=== PATIENT | female | born 1975 | race Caucasian/White ===

== ENCOUNTER 2020-07-23 10:05 | Emergency (ER) | payer OTHER ==
--- NOTE | 2020-07-23 11:02 | XRAY Report ---
PROCEDURE: Ankle 3 View LT INDICATIONS: medial pain with movement like gout TECHNIQUE: 3 views of the ankle were acquired. COMPARISON: None available FINDINGS: Bones: No fractures or dislocations. Ankle mortise is normally aligned. No suspicious bony lesions . A plantar calcaneal spur is incidentally noted. The talar dome demonstrates an unremarkable henry earance. Soft tissues: Soft tissue swelling is seen, particularly medially. IMPRESSION: Soft tissue swelling is seen, particularly medially. If it would be helpful for clinical management decision making, please consider a dedicated ankle MRI for further evaluation (assuming that there is no contraindication). Reviewed by: Yvon Mann MD on 07/23/2020 10:01 AM [facility] Approved by: Yvon Mann MD on 07/23/2020 10:01 AM L[facility]US Station ID: [id number]
[2020-07-23] MEDS: DEXAMETHASONE 10 MG/ML VIAL PO STA (11:04)
[2020-07-23] MEDS: CHERRY SYRUP 10 ML UDC PO ONE (11:04)
[2020-07-23] MEDS: KETOROLAC 60 MG/2 ML VIAL IM STA (11:06)
--- NOTE | 2020-07-23 11:14 | ED Physician Documentation ---
PD HPI LOWER EXT INJURY - Stated complaint Stated Complaint: LT ANKLE PX - Chief complaint Chief Complaint: Ext Problem - History of Present Illness PD HPI LOW EXT INJURY LOCATION: Left, Ankle Type of injury: Other (unknown) Where injury occurred: Home Timing - onset: Yesterday Timing - duration: Days (1) Timing - details: Gradual onset, Still present Improved by: Rest, Immobilization Worsened by: Moving, Palpating Associated symptoms: Swelling. No: Weakness, Numbness Contributing factors: No: Anticoagulated Similar symptoms before: No diagnosis Recently seen: Not recently seen - Additional information Additional information: 44-year-old female reports waking up with pain in her left ankle on the medial aspect that is more severe today and she is unable to bear weight. She is inability to even move her ankle around without severe pain. She does not remember injuring the ankle. She states that she awoke with this pain yesterday morning she felt that when she went to get out of bed she was able to limp around a bit yesterday earlier this morning her pain is melted she is unable to even get the bed sheets to be comfortable over her feet and she is unable to bear weight this morning. Review of Systems Constitutional: denies: Fever, Chills Eyes: denies: Decreased vision Ears: denies: Ear pain Nose: denies: Congestion Throat: denies: Sore throat Cardiac: denies: Chest pain / pressure Respiratory: denies: Dyspnea, Cough GI: denies: Abdominal Pain, Nausea, Vomiting : denies: Dysuria, Frequency Skin: denies: Rash Musculoskeletal: reports: Joint pain, Joint swelling, Pain with weight bearing. 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 : None HEENT: None Psych: Depression Musculoskeletal: None Derm: None - Past Surgical History Past Surgical History: Yes Ortho: Shoulder arthroplasty - Present Medications Home Medications: Ambulatory Orders Medication Instructions Recorded Confirmed Amlodipine Besylate 10 mg PO DAILY PM 07/23/20 07/23/20 Escitalopram Oxalate 10 mg PO DAILY 07/23/20 07/23/20 Hydrocodone/Acetaminophen 1 - 2 each PO Q6H PRN #14 tablet 07/23/20 [Hydrocodone-Acetamin 5-325 mg] Indomethacin 25 mg PO Q6HR PRN #30 capsule 07/23/20 Levothyroxine [Synthroid] 125 mcg PO QDAC 07/23/20 07/23/20 SUMAtriptan succinate [Sumatriptan 50 mg PO DAILY PRN 07/23/20 07/23/20 Succinate] - Allergies Allergies/Adverse Reactions: Allergies Allergy/AdvReac Type Severity Reaction Status Date / Time No Known Drug Allergies Allergy Verified 07/23/20 10:15 - Social History Does the pt smoke?: No Smoking Status: Former smoker Does the pt drink ETOH?: Yes Does the pt have substance abuse?: No - Immunizations Immunizations are current?: No PD ED PE NORMAL - Vitals Vital signs reviewed: Yes (hypertensive ) - General General: Alert and oriented X 3, No acute distress, Well developed/nourished - HEENT HEENT: Atraumatic, PERRL, EOMI - Respiratory Respiratory: No respiratory distress - Derm Derm: Normal color, Warm and dry, No rash - Extremities Extremities: No deformity, No edema, Other (There is exquisit tenderness to the medial aspect of the left ankle there is only mild swelling. Slight movements of the ankle cause excessive pain. The distal n/v is intact. ) - Neuro Neuro: Alert and oriented X 3, photograph retoucher 2-12 intact, No motor deficit, No sensory deficit, Normal speech Eye Opening: Spontaneous Motor: Obeys Commands Verbal: Oriented GCS Score: 15 - Psych Psych: Normal mood, Normal affect Results - Vitals Vitals: Vital Signs - 24 hr 07/23/20 07/23/20 10:12 10:49 Temperature 37.1 C 36.9 C Heart Rate 77 73 Respiratory 16 18 Rate Blood Pressure 138/94 H 144/83 H O2 Saturation 100 99 Oxygen O2 Source Room air - Rads (name of study) ankle Radiology: Prelim report reviewed (Impression: Soft tissue swelling is seen, particularly medially.), EMP read indepedently, See rad report PD MEDICAL DECISION MAKING - ED course Complexity details: considered differential, d/w patient ED course: 44-year-old female with an acutely painful left ankle appears to have gout by history and exam. She has no evidence of fracture on her plain film. She is treated in the emergency department with dexamethasone and Toradol.We will provide the patient indomethacin and hydrocodone and a note for work for 3 days. I explained to the patient reasons to come back to the emergency department main things to be concerned about and she appears to understand. Departure - Departure Disposition: 01 Home, Self Care Clinical Impression: Gout attack Qualifiers: Gout site: ankle Gout etiology: unspecified cause Laterality: left Qualified Code(s): M10.9 - Gout, unspecified Condition: Stable Instructions: Gout Attack Tx, ED Diet Gout Follow-Up: [facility] [Provider Group] Prescriptions: Indomethacin 25 mg PO Q6HR PRN #30 capsule PRN Reason: Pain Hydrocodone/Acetaminophen [Hydrocodone-Acetamin 5-325 mg] 1 - 2 each PO Q6H PRN #14 tablet PRN Reason: Pain Forms: Activity restrictions
[2020-07-23 11:43] VITALS: BP 157/90
== END 2020-07-23 11:59 | disposition home or self-care (01) ==
LOC: ED 10:05
DX: M10.072 Idiopathic gout, left ankle and foot (principal); I10 Essential (primary) hypertension; Z87.891 Personal history of nicotine dependence
CPT/HCPCS: 73610; 96372; 99283; 99284; A9270

== ENCOUNTER 2020-08-27 17:34 | Outpatient (CLI) | payer OTHER | END 2020-08-27 17:35 | disposition home or self-care (01) | LOC: COV 17:34 | PROVIDERS: ATTEND Family Medicine | DX: Z20.828 Contact with and (suspected) exposure to other viral communicable diseases (principal) ==

== ENCOUNTER 2020-09-15 16:34 | Emergency (ER) | payer OTHER ==
[2020-09-15 16:42] VITALS: BP 130/87
--- NOTE | 2020-09-15 16:46 | ED Physician Documentation ---
PD HPI OPHTHO - Stated complaint Stated Complaint: BILAT EYE IRRITATION - Chief complaint Chief Complaint: Heent - History obtained from History obtained from: Patient - Additional information Additional information: Since yesterday she had left eye irritation and a feeling of grittiness with redness and today it is moved to the right eye. No visual deficit or purulent drainage. She does not wear contacts. 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 : None HEENT: None Psych: Depression Musculoskeletal: None Derm: None - Past Surgical History Past Surgical History: Yes Ortho: Shoulder arthroplasty - Present Medications Home Medications: Ambulatory Orders Medication Instructions Recorded Confirmed Amlodipine Besylate 10 mg PO DAILY PM 07/23/20 09/15/20 Hydrocodone/Acetaminophen 1 - 2 each PO Q6H PRN #14 tablet 07/23/20 09/15/20 [Hydrocodone-Acetamin 5-325 mg] Levothyroxine [Synthroid] 125 mcg PO QDAC 07/23/20 09/15/20 SUMAtriptan succinate [Sumatriptan 50 mg PO DAILY PRN 07/23/20 09/15/20 Succinate] Escitalopram [Lexapro] 1 tab PO DAILY 09/15/20 09/15/20 - Allergies Allergies/Adverse Reactions: Allergies Allergy/AdvReac Type Severity Reaction Status Date / Time No Known Drug Allergies Allergy Verified 09/15/20 16:39 - Social History Does the pt smoke?: No Smoking Status: Former smoker Does the pt drink ETOH?: Yes Does the pt have substance abuse?: No - Immunizations Immunizations are current?: No PD ED PE NORMAL - Vitals Vital signs reviewed: Yes - General General: Alert and oriented X 3, No acute distress - HEENT HEENT: PERRL, EOMI, Ears normal, Other (Beet red viral appearing conjunctivitis on both sides left slightly worse than right. No eyelid swelling or edema. No drainage.) - Neck Neck: Supple, no meningeal sign, No bony TTP - Neuro Neuro: Alert and oriented X 3, Normal speech Results - Vitals Vitals: Vital Signs - 24 hr 09/15/20 16:41 Temperature 36.5 C Heart Rate 80 Respiratory 16 Rate Blood Pressure 130/87 H O2 Saturation 99 Oxygen O2 Source Room air Departure - Departure Disposition: 01 Home, Self Care Clinical Impression: Viral conjunctivitis of both eyes Condition: Good Record reviewed to determine appropriate education?: Yes Instructions: ED Conjunctivitis Viral Ch Comments: As discussed the conjunctivitis you have, AKA pinkeye is viral in appearance. You can use moisturizing eyedrops available [id number]. Return if worsening or if new symptoms develop. This should go away in a few days.
== END 2020-09-15 16:51 | disposition home or self-care (01) ==
LOC: ED 16:34
DX: B30.8 Other viral conjunctivitis (principal); I10 Essential (primary) hypertension; Z87.891 Personal history of nicotine dependence
CPT/HCPCS: 99281; 99282

== ENCOUNTER 2022-03-12 13:31 | Outpatient (CLI) | payer OTHER ==
[2022-03-12 14:41] VITALS: BP 130/80
--- NOTE | 2022-03-12 14:41 | SLEEP CARE CONSULTATION ---
Information from patient questionnaire entered by Cristopher Antonio MA. I have reviewed and concur with the information entered by Cristopher Antonio MA. This document represents the service I personally performed and the decisions made by , Edith Escobar ARNP. History of Present Illness Service Date and Time: 03/12/2022 1331 Reason for Visit: New patient (ONSET 09/27/2001) Chief Complaint: reports: Insomnia, Unrefreshed sleep, Fatigue, Frequent awakenings at night Date of Onset: SINCE CAN REMEMBER Usual bedtime: 9-11 PM Time it takes to fall asleep: 30 MINUTES TO HOURS Snores at night: Yes Observed to quit breathing while asleep: No Sleeps alone due to snoring: No Number of times waking at night: 1-3 TIMES Reasons for waking at night: reports: Bathroom, Other. denies: Choking, Snoring, Gasping for air Toss, Turn, or Twitch while sleeping: Yes Recalls having dreams: Yes Usually gets out of bed at: 0730 Feels refreshed in the morning: No Morning headache: No Sleepy or fatigued during the day: Yes Ever fallen asleep while driving: Yes (drowsy driving, no accidents) Takes day naps: Yes (daily if not working; 2-3 hours long) Dreams during day naps: Yes Prior sleep studies: No Additional HPI information: I had the pleasure of seeing PIERO BRAR today regarding the possibility of her having a sleep disorder. Her current complaints are insomnia, fatigue, frequent night awakenings and unrefreshed sleep. She states she wakes up at least a couple times a night. She never feels rested. Her has told her she snores. She states she can take 30 minutes to hours to go to sleep, usually due to racing thoughts. Once she gets to sleep she will wake up several times, for bathroom and unknown reasons. She has a history of migraines but denies morning headaches regularly. She has had trouble with drowsy driving but has not had any accidents where she fell asleep at the wheel. - Parasomnia Symptoms Ever been unable to move upon waking from sleep: No Walks in sleep: No Talks in sleep: No Ever acted out dreams in sleep: Yes (woke up hitting out while dreaming of defending herself) Ever felt weak in the knees when startled or emotional: No Bothered by creepy, crawly, restless sensations in legs: No Problems with memory or concentration: Yes (both; concentration is worse) Subjective Initial [place] Sleepiness Scale score: 13 (03/12/2021) Past Medical History Past Medical History: reports: Hypertension, Claustrophobia, Hypothyroidism (Thyroidectomy due to goiter, signs of Hashimotos), Anxiety, Depression, Other (Migraines) Social History 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 Patient is and lives in [place]. Have you smoked in the past 12 months: No Cigarettes per day (20/pack): 10 Years of smokin Quit date: 01/2010 Smoking Pack Years: 7.5 Alcohol use: Yes Alcohol amount and frequency: 1-2 DRINKS, rarely - 1-2 a month Caffeine use: Yes Caffeine amount and frequency: 1 X DAILY, few times a week Family History Family history of sleep disordered breathing: No Allergies and Home Medications Known drug allergies: No Drug allergies reviewed: Yes (NKDA) Home medication list reviewed: Yes Allergy and home medication list: Allergies No Known Drug Allergies Allergy (Verified 09/15/20 16:39) Medications: Lexapro Wellbutrin Amlodipine Imitrex, prn Trazodone, prn Nelson thyroid Review of Systems Cardiovascular: reports: high blood pressure Gastrointestinal: reports: heartburn Urinary: reports: frequency, urgency, other (at night) Neurological: reports: headaches Psychiatric: reports: anxiety, depression Ear/Nose/Throat: reports: wisdom teeth removed. denies: tonsillectomy Endocrine: reports: sluggishness, other (no thyroid) Physical Exam Vital signs obtained and entered by: Philip ANTONIO CMA [facility] Blood Pressure: 130/80 (PULSE 68, RESP 22) Cuff size: wrist (left) Heart Rate: 71 O2 Saturation: 98 Height: 5 ft 4 in Weight: 171 lb Body Mass Index: 29.3 BMI Classification: Overweight Neck circumference: 15 (INCHES) Mouth and throat: narrow oropharynx Soft palate: normal Hard palate: normal Uvula: normal Uvula visualization: 25% Mallampati Class III Tongue: enlarged in size with teeth tony on lateral edges Tonsils: 1+ Neck: normal w/o lymphadenopathy or thyromegaly Heart: regular rate and rhythm Lungs: clear bilaterally Impression and Plan 1. Suspected Obstructive Sleep Apnea-Hypopnea Syndrome, as suggested by a history of loud and irregular snoring, frequent awakening during the night, unrefreshed sleep, cognitive impairment, and excessive daytime sleepiness. Narrow oropharynx and obesity are common predisposing factors for obstructive sleep apnea-hypopnea syndrome. I recommend proceeding to polysomnography to confirm the diagnosis and to assess severity. If the patient has significant sleep disordered breathing, a manual CPAP titration study will also be performed to find the optimal treatment pressure. I informed the patient of what the sleep studies involve and after some discussion, obtained agreement to proceed. The pathophysiology of obstructive sleep apnea-hypopnea syndrome was discussed with the patient and health risks of cardiovascular and cerebrovascular disease if not treated. 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 Patient agreed to plan. * Schedule polysomnography * Avoid long distance driving or driving when feeling sleepy. * Avoid alcohol, sedative and muscle relaxant around bedtime. * Attempt to lose weight. * Review instructions provided by trained office staff on how to prepare for the sleep study. * Return for follow-up after sleep study completed. Counseling Topics: Weight loss health impact Visit Type: In Office Time Spent with Patient (minutes): 35 Provider Statement: I spent 100% of the Face to Face Visit with the patient with greater than 50% spent counseling the patient and coordination of care.
== END 2022-03-12 13:32 | disposition home or self-care (01) ==
LOC: SC 13:31
PROVIDERS: ATTEND Nurse Practitioner Family
DX: R06.83 Snoring (principal); G47.8 Other sleep disorders; G47.00 Insomnia, unspecified; R53.83 Other fatigue; I10 Essential (primary) hypertension; F32.A Depression, unspecified; Z87.891 Personal history of nicotine dependence; E66.3 Overweight; Z68.29 Body mass index [BMI] 29.0-29.9, adult
CPT/HCPCS: 99203; 99212

== ENCOUNTER 2022-03-25 11:53 | Outpatient (CLI) | payer OTHER | END 2022-03-25 11:54 | disposition home or self-care (01) | LOC: SC 11:53 | PROVIDERS: ATTEND Nurse Practitioner Family | DX: G47.33 Obstructive sleep apnea (adult) (pediatric) (principal); R09.02 Hypoxemia; R00.0 Tachycardia, unspecified | CPT/HCPCS: 95806 ==

== ENCOUNTER 2022-04-15 10:27 | Outpatient (CLI) | payer OTHER ==
[2022-04-15 11:03] VITALS: BP 123/72
--- NOTE | 2022-04-15 11:03 | SLEEP CARE CONSULTATION ---
Information from patient questionnaire entered by Cristopher Connell MA. I have reviewed and concur with the information entered by Cristopher Connell MA. This document represents the service I personally performed and the decisions made by , Edith Escobar ARNP. History of Present Illness Service Date and Time: 04/15/2022 1027 Initial [place] Sleepiness Scale score: 13 (03/12/2021) Current [place] Sleepiness Scale score: 15 (04/15/2022) Additional HPI information: PIERO BRAR returns for follow up and results of the recently performed home sleep study. I explained the pathophysiology behind obstructive sleep apnea. We then spent quite a bit of time discussing different treatment options. For mild obstructive sleep apnea, surgery and oral appliance are alternatives to nasal CPAP therapy but in moderate or severe cases, nasal CPAP is the most effective and reliable treatment. Because apnea is primarily in supine position, then positional management therapy could be effective. Methods discussed such as positioning with pillows to prevent supine sleep. I reviewed the impact of weight changes on sleep apnea and strongly recommended losing weight. After some discussion, the patient opted to go with the nasal CPAP therapy. Nasal autoCPAP set at 4-15 cmH20 will be ordered with rationale explained. A manual titration study will be ordered if unable to find optimal pressure with office adjustments. I explained how CPAP machine works and what to expect when using the machine. Using CPAP every night in order to get used to it was emphasized. Patient advised to put CPAP mask on before getting into bed so as not to fall asleep without CPAP. To assist acclimation to CPAP use, it could also be used for a short time during day while reading or watching TV. The patient was instructed to call the CPAP supplier to discuss any mechanical problem that may occur. If the mask given is uncomfortable or is difficult to keep on through the night even with adjustment, contact the CPAP supplier as many will replace with another mask style if notified before 30 days. If snoring or perceives is not getting enough air or too much air from the machine, notify this office. Patient counseled not drink alcohol less than 4 hours before bedtime as it can increase snoring and apnea. Patient was cautioned about risks of drowsy driving until sleepiness symptoms resolve. Sleep Study - Results Type of Sleep Study: Home sleep study (f/u hst, 03/25/2022 [facility], [facility],) Prior sleep studies: No Polysomnography/Home Sleep Study results: Physician Impression: The quality of the study is good. The length of the study is adequate (> 240 minutes). Please also see the tabulated and graphic data. 1. Obstructive Sleep Apnea-Hypopnea (ICD-10 G47.33), mild, with an AHI of 9.3/hr and [place] SaO2 of 83%. During the study, the patient had 27 apneas (27 obstructive, 0 central, 0 mixed) and 47 hypopneas. The longest episode lasted 78.5 seconds. The respiratory events occurred almost exclusively during supine sleep (supine AHI was 11.9 and non-supine, 3.34). 2. Hypoxemia (ICD-10 R09.02), minimal, with the lowest oxygen saturation of 83 % and 0.7 minutes with SaO2 under 90%. Baseline oxygen saturation was normal (Average oxygen saturation was 94%). 3. Tachycardia, with maximum recoded heart rate of 255 beats per minute, possibly an artifact. Allergies and Home Medications Known drug allergies: No Drug allergies reviewed: Yes Home medication list reviewed: Yes (no changes) Allergy and home medication list: Allergies No Known Drug Allergies Allergy (Verified 09/15/20 16:39) Review of Systems Review of systems same as previous: Yes (no changes) Physical Exam Vital signs obtained and entered by: ROEL DELVALLE Blood Pressure: 123/72 (RESP 16, PULSE 87, RIGHT) Heart Rate: 87 O2 Saturation: 98 (PAPER MASK) Height: 5 ft 4 in Weight: 173 lb (CLOTHES) Weight change since last visit: LOSE - IN FUTURE Body Mass Index: 29.7 BMI Classification: Overweight Impression and Plan 1. Obstructive Sleep Apnea-Hypopnea Syndrome, mild, with lowest oxygen saturation of 83%. Obviously this is the cause of the patients symptoms of unrefreshed sleep, and excessive daytime sleepiness. Positive pressure therapy could benefit hypertension, anxiety, depression and migraines. As mentioned above, the patient will be started on nasal autoCPAP therapy with pressure set at 4-15 cmH2O. Compliance guidelines also reviewed. A copy of compliance guidelines will be given for reference at check out. Because the apnea is more severe supine, I instructed to avoid sleeping supine using pillow positioning until able to start CPAP use. * Nasal auto CPAP therapy, pressure at 4-15 cm H2O. * Attempt to lose weight. * Avoid alcohol consumption near bedtime. * Avoid supine sleep until using CPAP. * The patient is again cautioned about driving until sleepiness completely resolves. * Return one month after CPAP obtained. I will assess response to therapy and compliance at that time. Counseling Topics: Sleeping position, Weight loss health impact Visit Type: In Office Time Spent with Patient (minutes): 20 Provider Statement: I spent 100% of the Face to Face Visit with the patient with greater than 50% spent counseling the patient and coordination of care.
== END 2022-04-15 10:28 | disposition home or self-care (01) ==
LOC: SC 10:27
PROVIDERS: ATTEND Nurse Practitioner Family
DX: G47.33 Obstructive sleep apnea (adult) (pediatric) (principal)
CPT/HCPCS: 99212; 99213

== ENCOUNTER 2022-07-28 11:28 | Outpatient (CLI) | payer OTHER ==
[2022-07-28 12:06] VITALS: BP 134/82
--- NOTE | 2022-07-28 12:06 | SLEEP CARE CONSULTATION ---
Information from patient questionnaire entered by Raegan Buchanan. I have reviewed and concur with the information entered by Raegan Buchanan. This document represents the service I personally performed and the decisions made by me, Edith Escobar ARNP. History of Present Illness Service Date and Time: 07/28/2022 1128 Previous diagnosis: Mild, Obstructive Sleep Apnea-Hypopnea Syndrome AHI: 9.3 (in 2021) Reason for follow up: first compliance ([facility]) Equipment type: CPAP Equipment obtained from: [facility] (got initial supplies) Mask style: Nasal pillows Backup mask available: No (will keep old mask when replaced) Last cushion change: 2 + months Prior sleep studies: No Type of Sleep Study: Home sleep study (f/u hst, 03/25/2022 [facility], POS,) HPI additional information: PIERO BRAR was diagnosed to have mild, AHI 9.8, obstructive sleep apnea- hypopnea syndrome and returned today for CPAP therapy first compliance follow- up. Sleep Study - Results Type of Sleep Study: Home sleep study (f/u hst, 03/25/2022 [facility], POS,) Prior sleep studies: No CPAP Compliance Data - Data Reviewed with Patient Average duration of nightly device use: 5 hours 4 minutes Compliance rate %: 7 ( days used) Current pressure setting (cmH2O): 4-15 Average residual AHI: 2.5 Central apnea: 1.0 Obstructive apnea: 0.3 Average large leak: 0.8 lpm Subjective Missed days of use due to: reports: mask issues Patient concerns: reports: condensation in mask/hose (noise in hose and dripping from mask). denies: aerophagia, mask discomfort, air blowing in eyes, mask leak noise, nasal congestion, dry mouth, nose, throat, epistaxis Observed to snore while using device: No Current pressure setting perceived as: too high On therapy, patient: reports: sleeping better, more rested overall. denies: drowsiness while driving Initial [place] Sleepiness Scale score: 13 (03/12/2021) Current [place] Sleepiness Scale score: 17 (07/28/22) Allergies and Home Medications Drug allergies reviewed: Yes (NKDA) Home medication list reviewed: Yes (no changes) Review of Systems Review of systems same as previous: Yes (no changes) Physical Exam Vital signs obtained and entered by: RAEGAN Hernandez MA Blood Pressure: 134/82 (left arm) Cuff size: regular Heart Rate: 84 O2 Saturation: 98 Height: 5 ft 4 in Weight: 177 lb 12.8 oz Body Mass Index: 30.5 BMI Classification: Obese Impression and Plan 1. Obstructive Sleep Apnea-Hypopnea Syndrome, mild, with poor treatment compliance and good apnea control. On CPAP therapy, the patient has better sleep quality and is more rested overall. Patient states its been a while because she got sick and its been 2 months recovering. She also has not been able to use her CPAP much because it will have a noise in the tubing that wakes her up and she will get water splashing on her face. I talked to her about how to reduce condensation. I adjusted her humidity from 4 to 3 with her tube temperature at 80 degrees. I also advised that she could put her machine lower than her head to help reduce condensation sounds in the tubing. She voiced understanding and agreement. Patient also feeling that the pressure is occasionally too high. Her residual AHI is well controlled at 2.5 with average pressure used 10.5 cmH2O. The patients pressure will be changed to autoCPAP 6-10 cmH20 for patient comfort. Patient advised to contact me if pressure change is uncomfortable so that it can be adjusted. Goals for apnea control discussed. Patient's apnea severity and rationale for treatment to reduce apnea, improve sleep quality and reduce cardiovascular and cerebrovascular events was reviewed. I also reviewed the benefit of consistent device use of CPAP for hypertension, depression, anxiety and migraines. 2. Obesity, unspecified. Currently patients BMI is 30.5. Obesity increases the risk of apnea, CPAP pressure requirements and overall health risks especially cardiovascular and diabetes. Thus patient is advised to lose weight. * Change auto CPAP pressure to 6-10 cmH2O * Notify me if snoring with mask or feeling that the pressure is too much or too little * Attempt to lose weight * Call this office if any problems using CPAP * Return for follow up in 1-2 months, or sooner if concerns arise Counseling Topics: Spare mask, Weight loss health impact Visit Type: In Office Time Spent with Patient (minutes): 21 Provider Statement: I spent 100% of the Face to Face Visit with the patient with greater than 50% spent counseling the patient and coordination of care.
== END 2022-07-28 11:29 | disposition home or self-care (01) ==
LOC: SC 11:28
PROVIDERS: ATTEND Nurse Practitioner Family
DX: G47.33 Obstructive sleep apnea (adult) (pediatric) (principal); E66.9 Obesity, unspecified; Z68.30 Body mass index [BMI] 30.0-30.9, adult
CPT/HCPCS: 99212; 99213

== ENCOUNTER 2022-08-28 10:01 | Outpatient (CLI) | payer OTHER ==
[2022-08-28 10:32] VITALS: BP 126/74
--- NOTE | 2022-08-28 10:32 | SLEEP CARE CONSULTATION ---
Information from patient questionnaire entered by Raegan Buchanan. I have reviewed and concur with the information entered by Raegan Buchanan. This document represents the service I personally performed and the decisions made by , Edith Escobar ARNP. History of Present Illness Service Date and Time: 08/28/2022 1001 Previous diagnosis: Mild, Obstructive Sleep Apnea-Hypopnea Syndrome AHI: 9.3 Reason for follow up: one month (F/U) Equipment type: CPAP (RESMED) Equipment obtained from: [facility] (needs to order supplies) Mask style: Nasal pillows Backup mask available: No (will keep old mask when replaced) Last cushion change: 1 month+ Prior sleep studies: No Type of Sleep Study: Home sleep study (f/u hst, 03/25/2022 [facility], POS,) HPI additional information: PIERO BRAR was diagnosed to have mild, AHI 9.3, obstructive sleep apnea-hypopnea syndrome and returned today for CPAP therapy one month with pressure change follow-up. Sleep Study - Results Type of Sleep Study: Home sleep study (f/u hst, 03/25/2022 [facility], POS,) Prior sleep studies: No CPAP Compliance Data - Data Reviewed with Patient Average duration of nightly device use: 4 hours 40 mins Compliance rate %: 62 (/ days used) Current pressure setting (cmH2O): 6-10 Average residual AHI: 1.8 Central apnea: 0.7 Obstructive apnea: 0.3 Hypopnea: 0.3 Subjective Missed days of use due to: reports: mask issues (part of mask came apart, fixed for next night), other (too tired when go to bed, forget to put on) Patient concerns: reports: dry mouth, nose, throat (dry nose). denies: aerophagia, mask discomfort, air blowing in eyes, mask leak noise, condensation in mask/hose, nasal congestion, epistaxis Observed to snore while using device: No Current pressure setting perceived as: comfortable On therapy, patient: reports: sleeping better, awakening more refreshed, being more awake and alert during the day, more rested overall. denies: drowsiness while driving Initial [place] Sleepiness Scale score: 13 (03/12/2021) Current [place] Sleepiness Scale score: 14 (08/28/2022) Allergies and Home Medications Drug allergies reviewed: Yes (NKDA) Home medication list reviewed: Yes (no changes) Allergy and home medication list: Allergies No Known Drug Allergies Allergy (Verified 07/28/22 13:31) Review of Systems Review of systems same as previous: Yes (no changes) Physical Exam Vital signs obtained and entered by: RAEGAN Hernandez MA Blood Pressure: 126/74 (LEFT ARM) Cuff size: regular Heart Rate: 75 O2 Saturation: 98 Height: 5 ft 4 in Weight: 182 lb 9.6 oz Body Mass Index: 31.3 BMI Classification: Obese Impression and Plan 1. Obstructive Sleep Apnea-Hypopnea Syndrome, mild, with fair treatment compliance and good apnea control. On CPAP therapy, the patient has better sleep quality and is more rested overall. Patient has significant improvement of their sleep apnea and are satisfied with current CPAP therapy. Patient has been able to wear her mask every night but sometimes she just does not sleep very well. She has been able to bring up her complaints from 7% to 62% in the last month. She is getting a little bit of a dry nose the last couple of nights but otherwise has no complaints with her CPAP use. Patient's apnea severity and rationale for treatment to reduce apnea, improve sleep quality and reduce cardiovascular and cerebrovascular events was reviewed. I also reviewed the benefit of consistent device use of CPAP for hypertension, depression, anxiety and migraines. 2. Obesity, unspecified. Currently patients BMI is 31.3. Obesity increases the risk of apnea, CPAP pressure requirements and overall health risks especially cardiovascular and diabetes. Thus patient is advised to continue to try to lose weight. * Continue auto CPAP pressure at 6-10 cmH2O * Notify me if snoring with mask or feeling that the pressure is too much or too little * Continue to try to lose weight * Call this office if any problems using CPAP * Return for follow up in 3 months, or sooner if concerns arise Counseling Topics: Spare mask, Weight loss health impact Visit Type: In Office Time Spent with Patient (minutes): 13 Provider Statement: I spent 100% of the Face to Face Visit with the patient with greater than 50% spent counseling the patient and coordination of care.
== END 2022-08-28 10:02 | disposition home or self-care (01) ==
LOC: SC 10:01
PROVIDERS: ATTEND Nurse Practitioner Family
DX: G47.33 Obstructive sleep apnea (adult) (pediatric) (principal); E66.9 Obesity, unspecified; Z68.31 Body mass index [BMI] 31.0-31.9, adult
CPT/HCPCS: 99212

== ENCOUNTER 2023-05-25 04:16 | Day surgery (SDC) | payer OTHER ==
[2023-05-25] MEDS ORDERED: HYDROmorphone 1 MG/ML CARPUJECT IVP STA (04:37)
[2023-05-25] MEDS ORDERED: KETOROLAC 30 MG/ML VIAL IVP STA (04:37)
[2023-05-25] MEDS ORDERED: SODIUM CHLORIDE 0.9% 1,000 ML IV STA ×2 (04:37→07:01)
[2023-05-25] MEDS ORDERED: ONDANSETRON 4 MG/2 ML VIAL IVP STA (04:37)
[2023-05-25 05:25] LABS: BASOPHILS # (AUTO) 0.1 10^3/uL (0.0-0.1); BASOPHILS % (AUTO) 0.5 %; EOSINOPHILS # (AUTO) 0.1 10^3/uL (0.0-0.7); EOSINOPHILS % (AUTO) 0.9 %; HGB - HEMOGLOBIN 15.9 g/dL (12.0-16.0); LYMPHOCYTES # (AUTO) 1.1 10^3/uL (1.5-3.5); LYMPHOCYTES % (AUTO) 7.6 %; MEAN CORPUSCULAR HEMOGLOBIN 34.4 pg (27.0-31.0); MEAN CORPUSCULAR HGB CONC 36.1 g/dL (32.0-36.0); MEAN CORPUSCULAR VOLUME 95.2 fL (81.0-99.0); MEAN PLATELET VOLUME 10.5 fL (7.9-10.8); MONOCYTES # (AUTO) 0.6 10^3/uL (0.0-1.0); MONOCYTES % (AUTO) 4.7 %; NEUTROPHILS # (AUTO) 11.8 10^3/uL (1.5-6.6); PLT - PLATELET COUNT 375 10^3/uL (130-450); RED BLOOD COUNT 4.62 10^6/uL (4.20-5.40); RED CELL DISTRIBUTION WIDTH 12.7 % (12.0-15.0); WHITE BLOOD COUNT 13.8 x10^3/uL (4.8-10.8)
[2023-05-25 05:42] LABS: ALBUMIN 4.4 g/dL (3.2-5.5); ALBUMIN/GLOBULIN RATIO 1.6 (1.0-2.2); BILIRUBIN,TOTAL 0.4 mg/dL (0.2-1.0); CALCIUM 9.4 mg/dL (8.5-10.3); CREATININE 0.8 mg/dL (0.6-1.3); POTASSIUM 3.8 mmol/L (3.5-4.5); TOTAL PROTEIN 7.2 g/dL (6.4-8.9)
[2023-05-25 05:47] LABS: HCG,QUALITATIVE BLOOD NEGATIVE
[2023-05-25 06:41] LABS: BILIRUBIN,URINE NEGATIVE (NEGATIVE); GLUCOSE, URINE (UA) NEGATIVE (NEGATIVE); KETONES,URINE (UA) NEGATIVE (NEGATIVE); LEUKOCYTE ESTERASE, URINE NEGATIVE (NEGATIVE); NITRITE,URINE NEGATIVE (NEGATIVE); OCCULT BLOOD,URINE NEGATIVE (NEGATIVE); PROTEIN,URINE NEGATIVE (NEGATIVE); UROBILINOGEN,URINE 0.2 (NORMAL) E.U./dL (NORMAL)
[2023-05-25] MEDS ORDERED: iohexoL-300 100 ML VIAL IVP ONE (06:42)
[2023-05-25 06:47] LABS: CLARITY,URINE CLEAR (CLEAR)
--- NOTE | 2023-05-25 06:58 | ED Physician Documentation ---
PD HPI ABD PAIN - Stated complaint Stated Complaint: R LOWER BODY PX - Chief complaint Chief Complaint: Abd Pain - History obtained from History obtained from: Patient - Additional information Additional information: The patient comes to the emergency department chief complaint of right lower quadrant abdominal pain that started around 1:00 this morning. Patient states she is feeling more or less fine yesterday and went to bed without pain. However, she woke up around 1:00 and felt the need to use the restroom at which she got up she suddenly noticed that she had a strong pain in her right lower quadrant. The patient states it was so uncomfortable that she ended up vomiting and finally decided to come in because the pain was just not going away. She denies constipation or diarrhea. No urinary symptoms. No history of kidney stones. No abdominal surgical history. No fevers or chills. No other complaints at this time. 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 : None HEENT: None Psych: Depression Musculoskeletal: None Derm: None - Past Surgical History Past Surgical History: Yes Ortho: Shoulder arthroplasty - Present Medications Home Medications: Ambulatory Orders Medication Instructions Recorded Confirmed Amlodipine Besylate 10 mg PO DAILY PM 07/23/20 08/28/22 Hydrocodone/Acetaminophen 1 - 2 each PO Q6H PRN #14 tablet 07/23/20 08/28/22 [Hydrocodone-Acetamin 5-325 mg] Levothyroxine [Synthroid] 125 mcg PO QDAC 07/23/20 08/28/22 SUMAtriptan succinate [Sumatriptan 50 mg PO DAILY PRN 07/23/20 08/28/22 Succinate] Escitalopram [Lexapro] 1 tab PO DAILY 09/15/20 08/28/22 - Allergies Allergies/Adverse Reactions: Allergies Allergy/AdvReac Type Severity Reaction Status Date / Time No Known Drug Allergies Allergy Verified 08/28/22 10:18 - Social History Does the pt smoke?: No Smoking Status: Former smoker Does the pt drink ETOH?: Yes Does the pt have substance abuse?: No - Immunizations Immunizations are current?: No PD ED PE NORMAL - Vitals Vital signs reviewed: Yes - General General: Alert and oriented X 3, No acute distress (The patient appears moderately uncomfortable, holding her right lower quadrant and wincing, but otherwise in no apparent distress.), Well developed/nourished - HEENT HEENT: Atraumatic, PERRL, EOMI, Moist mucous membranes - Neck Neck: Supple, no meningeal sign - Cardiac Cardiac: RRR, No murmur - Respiratory Respiratory: No respiratory distress, Clear bilaterally - Abdomen Abdomen: Soft, Non distended, Other (Moderate tenderness to palpation over the right lower quadrant, no rebound or guarding. 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, Normal speech, Other (Grossly intact) - Psych Psych: Normal mood, Normal affect Results - Vitals Vitals: Vital Signs - 24 hr 05/25/23 05/25/23 05/25/23 04:22 05:30 06:30 Temperature 37.1 C Heart Rate 88 75 67 Respiratory 16 18 18 Rate Blood Pressure 142/89 H 121/73 141/80 H O2 Saturation 98 95 96 Oxygen O2 Source Room air - Labs Labs: Laboratory Tests 05/25/23 05/25/23 05/25/23 04:28 04:28 04:28 WBC 13.8 H RBC 4.62 Hgb 15.9 Hct 44.0 MCV 95.2 MCH 34.4 H MCHC 36.1 H RDW 12.7 Plt Count 375 MPV 10.5 Neut # (Auto) 11.8 H Lymph # (Auto) 1.1 L [place] # (Auto) 0.6 Eos # (Auto) 0.1 Baso # (Auto) 0.1 Absolute Nucleated RBC 0.00 Nucleated RBC % 0.0 Sodium 136 Potassium 3.8 Chloride 106 Carbon Dioxide 22 Anion Gap 8.0 BUN 14 Creatinine 0.8 Estimated GFR (MDRD) 76 L Glucose 147 H Calcium 9.4 Total Bilirubin 0.4 AST 13 ALT 12 Alkaline Phosphatase 91 Total Protein 7.2 Albumin 4.4 Globulin 2.8 Albumin/Globulin Ratio 1.6 Lipase 10 L Serum HCG, Qual NEGATIVE Urine Color Urine Clarity Urine pH Ur Specific [place] Urine Protein Urine Glucose (UA) Urine Ketones Urine Occult Blood Urine Nitrite Urine Bilirubin Urine Urobilinogen Ur Leukocyte Esterase Ur Microscopic Review Urine Culture Comments 05/25/23 06:05 WBC RBC Hgb Hct MCV MCH MCHC RDW Plt Count MPV Neut # (Auto) Lymph # (Auto) [place] # (Auto) Eos # (Auto) Baso # (Auto) Absolute Nucleated RBC Nucleated RBC % Sodium Potassium Chloride Carbon Dioxide Anion Gap BUN Creatinine Estimated GFR (MDRD) Glucose Calcium Total Bilirubin AST ALT Alkaline Phosphatase Total Protein Albumin Globulin Albumin/Globulin Ratio Lipase Serum HCG, Qual Urine Color YELLOW Urine Clarity CLEAR Urine pH 6.0 Ur Specific [place] 1.025 Urine Protein NEGATIVE Urine Glucose (UA) NEGATIVE Urine Ketones NEGATIVE Urine Occult Blood NEGATIVE Urine Nitrite NEGATIVE Urine Bilirubin NEGATIVE Urine Urobilinogen 0.2 (NORMAL) Ur Leukocyte Esterase NEGATIVE Ur Microscopic Review NOT INDICATED Urine Culture Comments NOT INDICATED - Rads (name of study) CT abdomen and pelvis with IV contrast Relevant Findings:: Final report received, See rad report (Acute appendicitis; cholelithiasis without cholecystitis) PD Medical Decision Making - ED course Complexity details: reviewed results, re-evaluated patient, considered differential, d/w patient ED course: The patient was treated symptomatically with IV fluids, Dilaudid, Toradol, and Zofran and was found to be feeling much better. She was worked up with laboratory studies and urinalysis, and found to have a white blood cell count of 13.8 and a negative UA. She was sent for CT scan of the abdomen and pelvis which showed acute noncomplicated appendicitis and a single large gallstone without any evidence of cholecystitis. I spoke with Dr. Harris, who is on-call for surgery and she did agree to come evaluate the patient in the emergency department with plan to take the patient to the operating room. I discussed the patient's findings with her and she has expressed understanding. She stated she did not have her cell phone with her, and requested that I give her , Frank, a call, as he was sitting down in his truck in the parking lot. I did call him at [phone], but it went straight to voicemail so I left him a message. The plan will be for the patient to be evaluated by the surgeon and go to operating room later today. She has been started on maintenance IV fluids. We will withhold antibiotics for now at Dr. Harris's request. Departure - Departure Disposition: ED Transfer to [facility] Clinical Impression: Appendicitis Qualifiers: Appendicitis type: acute appendicitis Acute appendicitis type: with localized peritonitis Appendicitis gangrene presence: without gangrene Appendicitis perforation presence: without perforation Appendicitis abscess presence: without abscess Qualified Code(s): K35.30 - Acute appendicitis with localized peritonitis, without perforation or gangrene Condition: Serious Forms: PCP List
[2023-05-25] MEDS ORDERED: HYDROmorphone 1 MG/ML CARPUJECT IVP PRN (07:44)
[2023-05-25] MEDS ORDERED: ONDANSETRON 4 MG/2 ML VIAL IVP PRN ×3 (08:27→11:24)
[2023-05-25] MEDS ORDERED: MORPHINE 2 MG/ML CARPUJECT IVP PRN ×2 (08:27→10:02)
--- NOTE | 2023-05-25 08:30 | CT Report ---
PROCEDURE: ABDOMEN/PELVIS W INDICATIONS: RLQ abd pain CONTRAST: Omni 300 100ml 0 0.8 TECHNIQUE: After the administration of IV contrast, 5 mm thick sections acquired from the diaphragms to the symp hysis. 5 mm thick coronal and sagittal reformats were acquired. For radiation dose reduction, the f ollowing was used: automated exposure control, adjustment of mA and/or kV according to patient size. COMPARISON: None. FINDINGS: Image quality: Excellent. Lung bases and heart: Unremarkable. Liver: No solid mass. Gallbladder and biliary tree: There is a calcified gallstone. No gallbladder wall thickening or peric holecystic fluid. No biliary dilation. Spleen: No splenomegaly. Pancreas: No pancreatic ductal dilation. Adrenals: No adrenal nodule. Kidneys and ureters: No hydronephrosis. No renal cystic lesion which requires follow up. No solid mas s. Bowel and peritoneum: Appendix is distended measuring up to 11 mm in diameter. There is mild periappe ndiceal stranding. There is a [address] findings are consistent with acute appendici tis. No periappendiceal fluid collection to suggest periappendiceal abscess. No free air. No bowel di stension. Lymph nodes: No central or retroperitoneal adenopathy. Vessels: No infrarenal aortic aneurysm. PELVIS Reproductive organs: There is an IUD in uterus. Bilateral ovarian cysts. The left or right cyst measu res 5.2 x 4.1 cm. The right ovary and cyst measures 2.5 x 2.0 cm. Bladder: Mild bilateral thickening. Pelvic lymph nodes: No pelvic adenopathy by size criteria. Bones: No aggressive osseous abnormality. Other: No significant ventral or inguinal hernia. IMPRESSION: 1. Acute appendicitis. No appendiceal perforation or abscess. 2. Cholelithiasis. 3. Bilateral ovarian cysts. Recommend pelvic ultrasound for follow-up. Findings are concordant with preliminary interpretation provided by [facility]. Reviewed by: Ricki Cronin MD on 05/25/2023 8:29 AM PDT Approved by: Ricki Cronin MD on 05/25/2023 8:29 AM PDT Station ID: [id number]
[2023-05-25] MEDS ORDERED: SODIUM CHLORIDE 0.9% 1,000 ML IV SCH (09:00)
--- NOTE | 2023-05-25 09:01 | SURGERY HX AND PHYSICAL(T) ---
Surgical History & Physical - Chief Complaint/HPI Chief Complaint: abdominal pain History of Present Illness: The patient was in her normal state of health, aside from having a headache over the weekend, until she awoke from sleep at about 1:30 AM this morning with acute onset, sharp and stabbing right lower quadrant pain which was constant and worsened over the next couple of hours. Her pain does not radiate and is isolated to the right lower quadrant. She tried to go back to sleep but was unable to sleep. She then had sudden onset nausea and an episode of non bloody emesis, prompting her to come to the ED. She denies fevers or chills. She has been somewhat constipated lately, but denies blood in her stool. She had a colonoscopy about 1.5 years ago. She has not had any recent sick contacts and has never had similar pain in the past. 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 Urinary: None Musculoskeletal: None Blood Disorders: None Psychiatric: Depression Orthopedic: Shoulder arthroplasty Eyes Ears Nose Throat (EENT): Other (thyroidectomy) Smoking Status: Former smoker Does the pt drink ETOH?: Yes Frequency: Occasional (less than one per week, on average) Does the pt have substance abuse?: No - Family Hx Family Hx: Unremarkable - Home Meds and Allergies Home Medications: Amlodipine Besylate 10 mg PO DAILY PM 07/23/20 Levothyroxine [Synthroid] 125 mcg PO QDAC 07/23/20 SUMAtriptan succinate [Sumatriptan Succinate] 50 mg PO DAILY PRN 07/23/20 Escitalopram [Lexapro] 1 tab PO DAILY 09/15/20 Allergies/Adverse Reactions: Allergies Allergy/AdvReac Type Severity Reaction Status Date / Time No Known Drug Allergies Allergy Verified 08/28/22 10:18 - Review of Systems Constitutional: Other (A complete 10 point review of symptoms is otherwise negative except for that noted in HPI and PMH.) - Vital Signs Heart Rate: 69 Blood Pressure: 135/86 Temperature: 36.5 C Respiratory Rate: 16 O2 Saturation: 96 Weight (kg): 81.647 kg Height: 1.63 m - Physical Exam Comments/Other: GEN: No acute distress, appears stated age, alert and oriented HEENT: NCAT, MMM, EOMI NEURO: CN II-XII grossly intact, no obvious focal deficits CV: RRR PULM: Nonlabored, on room air ABD: Obese, soft, with exquisite tenderness to palpation in the right lower quadrant, and pain in the right lower quadrant with pain palpation in the right upper quadrant, otherwise nontender, positive rebound in the right lower quadrant, no guarding CIRCULATORY: no clubbing, cyanosis, or edema SKIN: no lesions appreciated LYMPH: no obvious lymphadenopathy MSK: 4/4 strength in all extremities PSYCH: Affect is appropriate - Patient Review Patient Review: Problems were reviewed with the patient during this visit. Medications were reviewed with the patient during this visit. Allergies were reviewed this patient during this visit. Pertinent Tests Reviewed: All pertitent test for this patient were reviewed. - Assessment & Plan Assessment and Plan: This is a 47-year-old female with: 1. acute appendicitis -The patient's history, physical exam, laboratory studies, and imaging are consistent with this diagnosis. I personally reviewed and independently interpreted the images and reviewed the report from the patient's CT of the abdomen and pelvis performed earlier this morning. She has an aunt a cecal appendix with mild surrounding inflammatory changes, maximal diameter is approximately 1 cm. There is no significant free fluid. There is no free air. -I discussed the natural history of acute appendicitis with the patient. We also discussed the risks, benefits, and alternatives of laparoscopic appendectomy including the the use of antibiotics alone. Risks discussed include bleeding, infection, damage to surrounding structures, and the need for further surgeries or procedures. We discussed the intraoperative and postoperative plan. The patient and voiced understanding, her questions were answered, and she wish to proceed with surgery. A consent was signed by the patient. The patient's and daughter were also present for this discussion. -Plan to keep the patient n.p.o. until after surgery. -Perioperative antibiotics will be given. The need for postoperative antibiotics will be determined in the operating room. I anticipate the patient will likely discharge later today. She will need to follow-up with me in clinic in 2 weeks. 2. Hypothyroidism, hypertension, depression -I will continue the patient's home medications after surgery -The patient's comorbidities to slightly increase her risk for surgery, however I feel she is still a good surgical candidate and that surgical intervention is in her best interest at this time.
[2023-05-25] MEDS ORDERED: BUPIVACAINE 0.25% PF 30 ML VIAL ONE (09:29)
[2023-05-25] MEDS ORDERED: ceFAZolin (2G) 2 GM in SODIUM CHLORIDE 0.9% MINIBAG 100 ML IV ONE (09:46)
[2023-05-25] MEDS ORDERED: ACETAMINOPHEN 1,000 MG/100 ML 1,000 MG/100 ML BAG IV ONE (09:46)
[2023-05-25] MEDS ORDERED: metroNIDAZOLE 500 MG/100 ML 500 MG/100 ML BAG IV SCH (10:00)
[2023-05-25] MEDS ORDERED: NALOXONE 0.4 MG/ML VIAL IVP PRN (10:02)
[2023-05-25] MEDS ORDERED: ePHEDrine 50 MG/ML VIAL IVP PRN (10:02)
[2023-05-25] MEDS ORDERED: fentaNYL 100 MCG/2 ML VIAL IVP PRN (10:02)
[2023-05-25] MEDS ORDERED: ATROPINE ABBOJECT 1 MG/10 ML SYRINGE IVP PRN (10:02)
[2023-05-25] MEDS ORDERED: HYDROmorphone 0.5 MG/0.5 ML SYRINGE IVP PRN ×2 (10:02→11:24)
--- NOTE | 2023-05-25 10:02 | ANESTHESIA ---
Pre-Anesthesia VS, & Labs - Diagnosis acute appendicitis - Procedure lap appy Vital Signs: Temp Pulse Resp BP Pulse Ox O2 Flow Rate 36.5 C 69 16 135/86 H 96 05/25/23 09:45 05/25/23 09:45 05/25/23 09:45 05/25/23 09:45 05/25/23 09:45 Height: 5 ft 4 in Weight (kg): 81.647 kg Body Mass Index: 30.9 BMI Classification: Obese - NPO >8 hours - Is Patient ?: No - Lab Results Current Lab Results: Laboratory Tests 05/25/23 04:28: Serum HCG, Qual NEGATIVE 05/25/23 04:28: Sodium 136, Potassium 3.8, Chloride 106, Carbon Dioxide 22, Anion Gap 8.0, BUN 14, Creatinine 0.8, Estimated GFR (MDRD) 76 L, Glucose 147 H, Calcium 9.4, Total Bilirubin 0.4, AST 13, ALT 12, Alkaline Phosphatase 91, Total Protein 7.2, Albumin 4.4, Globulin 2.8, Albumin/Globulin Ratio 1.6, Lipase 10 L 05/25/23 04:28: WBC 13.8 H, RBC 4.62, Hgb 15.9, Hct 44.0, MCV 95.2, MCH 34.4 H, MCHC 36.1 H, RDW 12.7, Plt Count 375, MPV 10.5, Neut # (Auto) 11.8 H, Lymph # (Auto) 1.1 L, Banner # (Auto) 0.6, Eos # (Auto) 0.1, Baso # (Auto) 0.1, Absolute Nucleated RBC 0.00, Nucleated RBC % 0.0 Fish Bones: 05/25/23 04:28 05/25/23 04:28 Home Medications and Allergies Active Medications Hydromorphone HCl (Hydromorphone 1 Mg/Ml Carpuject) 1 mg IVP Q1HR PRN PRN Reason: PAIN 5-7 Last Admin: 05/25/23 09:27 Dose: 1 mg Sodium Chloride (Normal Saline 0.9%) 1,000 mls @ 125 mls/hr IV .Q8H STA Stop: 05/25/23 15:00 Last Admin: 05/25/23 07:46 Dose: 125 mls/hr Sodium Chloride (Normal Saline 0.9%) 1,000 mls @ 125 mls/hr IV .Q8H JAMISON Cefazolin Sodium 2 gm/ Sodium (Chloride) 100 mls @ 200 mls/hr IV ONCE ONE Stop: 05/25/23 10:15 Metronidazole (Flagyl 500 Mg/100 Ml) 500 mg in 100 mls @ 100 mls/hr IV ONCE JAMISON Stop: 05/25/23 13:00 Morphine Sulfate (Morphine 2 Mg/Ml Carpuject) 4 mg IVP Q2HR PRN PRN Reason: PAIN >8 Ondansetron HCl (Ondansetron 4 Mg/2 Ml Vial) 4 mg IVP Q6HR PRN PRN Reason: Nausea / Vomiting Amlodipine Besylate 10 mg PO DAILY PM 07/23/20 Levothyroxine [Synthroid] 125 mcg PO QDAC 07/23/20 SUMAtriptan succinate [Sumatriptan Succinate] 50 mg PO DAILY PRN 07/23/20 Escitalopram [Lexapro] 1 tab PO DAILY 09/15/20 Allergies/Adverse Reactions: Allergies Allergy/AdvReac Type Severity Reaction Status Date / Time No Known Drug Allergies Allergy Verified 08/28/22 10:18 Anes History & Medical History - Anesthetic History Anesthesia Complications: reports: No previous complications Family history of Anesthesia Complications: Denies Family history of Malignant Hyperthermia: Denies - Medical History Cardiovascular: reports: Hypertension, High cholesterol Pulmonary: reports: None Gastrointestinal: reports: GERD Urinary: reports: None Neuro: reports: Migraines Musculoskeletal: reports: None Endocrine/Autoimmune: reports: HyPOthyroidism Blood Disorders: reports: None Skin: reports: None Smoking Status: Former smoker - Surgical History Eyes Ears Nose Throat (EENT): reports: Other (thyroidectomy) Orthopedic: reports: Shoulder arthroplasty Exam General: Alert, Oriented x3, Cooperative Dental: WNL Mouth Openin Fingerbreadth Neck Mobility: Normal Mallampati classification: II Thyromental Distance: 4-6 cm Respiratory: Lungs clear Cardiovascular: Regular rate Plan Anesthesia Type: General Consent for Procedure(s) Verified and Reviewed: Yes Code Status: Attempt Resuscitation ASA classification: 2-Mild systemic disease Is this case an emergency?: No
[2023-05-25] MEDS ORDERED: MIDAZOLAM 2 MG/2 ML VIAL ONE (10:11)
[2023-05-25] MEDS ORDERED: fentaNYL 100 MCG/2 ML VIAL ONE (10:11)
[2023-05-25] MEDS ORDERED: DEXAMETHASONE 4 MG/ML VIAL ONE (10:12)
[2023-05-25] MEDS ORDERED: ROCURONIUM 50 MG/5 ML VIAL ONE (10:12)
[2023-05-25] MEDS ORDERED: PROPOFOL 200 MG/20 ML VIAL IVP ONE (10:12)
[2023-05-25] MEDS ORDERED: ONDANSETRON 4 MG/2 ML VIAL ONE (10:12)
[2023-05-25] MEDS ORDERED: KETOROLAC 30 MG/ML VIAL ONE (10:12)
[2023-05-25] MEDS ORDERED: metroNIDAZOLE 500 MG/100 ML 500 MG/100 ML BAG ONE (10:48)
[2023-05-25] MEDS ORDERED: LACTATED RINGERS 1,000 ML IV SCH (11:00)
[2023-05-25] MEDS ORDERED: KETOROLAC 15 MG/ML VIAL IVP PRN (11:24)
[2023-05-25] MEDS ORDERED: oxyCODONE 5 MG TABLET PO PRN (11:24)
[2023-05-25] MEDS ORDERED: ACETAMINOPHEN 500 MG TABLET PO PRN (11:24)
[2023-05-25] MEDS ORDERED: SUGAMMADEX 200 MG/2 ML VIAL IVP ONE (11:27)
--- NOTE | 2023-05-25 11:29 | OPERATIVE REPORT ---
Operative Report - General Procedure Date: 05/25/23 Planned Procedure: Laparoscopic appendectomy Pre-Op Diagnosis: Acute appendicitis Procedure Performed: Laparoscopic appendectomy Post Op Diagnosis: Acute appendicitis, Nonperforated - Procedure Note Primary Surgeon: Dr Taylor Harris Anesthesia Provider: Lorri Yan CRNA Anesthesia Technique: General ET tube, Local Pathology: appendix Estimated Blood Loss (mL): 5 Indications: The patient presented with a several hour history of right lower quadrant abdominal pain. Her physical exam, labs, and imaging are consistent with acute appendicitis. There are no signs of perforation on her CT scan. I discussed the natural history of acute appendicitis with the patient. We also discussed the risks, benefits, and alternatives of laparoscopic appendectomy including the the use of antibiotics alone. Risks discussed include bleeding, infection, damage to surrounding structures, and the need for further surgeries or procedures. We discussed the intraoperative and postoperative plan. The patient and voiced understanding, her questions were answered, and she wish to proceed with surgery. A consent was signed by the patient prior to surgery. Findings: 1.Acute appendicitis, nonperforated 2.Right ovarian cyst Complications: None - Other Other Information/Narrative: The patient was brought to the operative suite and placed in the supine position. General endotrachealanesthesia was induced. A Woodard catheter was placed. Preoperative antibiotics were given. ERAS protocol was not followed due to the patient's pre op nausea. A preop surgical timeout was performed. Local anesthetic was injected into the skin and subcutaneous tissues just superior to the umbilicus. An 11 blade scalpel was used to make a 5 mm transverse skin incision in this location. Next, a hemostat was used to spread the tissues down to the level of the fascia and a Karla clamp was used to grasp and elevate the umbilical stalk. A Varess needle was used to gain access to the peritoneal space. Low flow insufflation revealed low pressures and then high flow insufflation was undertaken to 15 mmHg. Next, the Varess needle was removed and a 5 mm laparoscopic port was inserted in this location. Through this port, a 5 mm 30 degree laparoscope was inserted. On inspection of the abdomen no injury was caused on entry. Next, the patient was placed in Trendelenburg and rotated slightly to the left. 2 more ports were inserted. A 5 mm port was inserted in the suprapubic region, and a 12 mm port was inserted in the left lower quadrant. Both ports were placed by first anesthetizing the skin and subcutaneous tissues with local anesthetic, then by making an appropriate length incision with an 11 blade scalpel, and finally by placing the port under direct laparoscopic vision. Once the ports were in place, 2 atraumatic graspers were used to identify the area of concern. The appendix, terminal ileum, and cecum were identified. There was moderate inflammation about the appendix. A laparoscopic [place] harmonic scalpel was used to make a hole in the mesoappendix at the base of the appendix. Then, the base of the appendix was divided with the stapler, using a blue load. Great care was taken to ensure that only the base of the appendix was within the jaws of the stapler and then it was fired. Next, the remainder of the mesoappendix was divided using the harmonic scalpel. The staple line was inspected and noted to be hemostatic next, the appendix was placed in an Endo Catch bag and removed through the left lower quadrant port. The left lower quadrant port was then reinserted. Again, the staple line was inspected and noted to be hemostatic. The pelvis was inspected and the patient was noted to have a large right ovarian cyst. The left ovary and uterus appeared normal. There was no significant fluid in the pelvis. A small amount of blood was suctioned from the right lower quadrant. Next, a laparoscopic fascial closure device was used to place a single, interrupted 0 Vicryl suture at the left lower quadrant port. This reapproximated the fascia well. The remaining ports were removed under direct laparoscopic vision and the abdomen was deflated. Next, the skin edges were reapproximated with 4-0 Monocryl in an interrupted subcuticular fashion. A sterile dressing of skin glue was placed. The Woodard catheter was removed at the end of the case. The patient was extubated in the operating room and transferred to the recovery room in stable condition. There were no complications.
[2023-05-25] MEDS ORDERED: LACTATED RINGERS 800 ML IV ONE (11:38)
[2023-05-25 12:12] VITALS: O2SAT 94
[2023-05-25] MEDS ORDERED: oxyCODONE 5 MG TABLET ONE (12:43)
[2023-05-25 12:52] VITALS: BP 124/78
--- NOTE | 2023-05-25 15:27 | ANESTHESIA POST OP EVALUATION ---
Anesthesia Post Eval - Post Anesthesia Eval Vitals: Last Vital Signs Temp 36.8 C 05/25/23 12:44 Pulse 81 05/25/23 12:44 Resp 16 05/25/23 12:44 BP 124/78 05/25/23 12:44 Pulse Ox 94 05/25/23 12:44 O2 Flow Rate CV Function Including HR & BP: Stable Pain Control: Satisfactory Nausea & Vomiting: Negative Mental Status: Baseline Respiratory Status: Airway Patent Hydration Status: Satisfactory Anesthesia Complications: None
== END 2023-05-25 07:55 | disposition home or self-care (01) ==
LOC: ED 04:16 → SDS 07:54
PROVIDERS: ATTEND Surgery
PROC: 0DTJ4ZZ Resection of Appendix, Percutaneous Endoscopic Approach (ICD-10-PCS; principal; 2023-05-25 09:30)
DX: K35.30 Acute appendicitis with localized peritonitis, without perforation or gangrene (principal); I10 Essential (primary) hypertension; E66.9 Obesity, unspecified; E03.9 Hypothyroidism, unspecified; F32.A Depression, unspecified; Z68.30 Body mass index [BMI] 30.0-30.9, adult; Z79.890 Hormone replacement therapy; Z79.899 Other long term (current) drug therapy; Z87.891 Personal history of nicotine dependence
CPT/HCPCS: 36415; 44970; 74177; 80053; 81003; 83690; 84703; 85025; 96374; 99284; 99285; A9270; J1170; J7120; Q9967; 81001; 87086

== ENCOUNTER 2023-05-31 15:12 | Emergency (ER) | payer OTHER ==
[2023-05-31 15:43] LABS: BASOPHILS # (AUTO) 0.1 10^3/uL (0.0-0.1); BASOPHILS % (AUTO) 0.7 %; EOSINOPHILS # (AUTO) 0.2 10^3/uL (0.0-0.7); EOSINOPHILS % (AUTO) 2.2 %; HCT - HEMATOCRIT 44.6 % (37.0-47.0); HGB - HEMOGLOBIN 15.1 g/dL (12.0-16.0); LYMPHOCYTES # (AUTO) 1.4 10^3/uL (1.5-3.5); LYMPHOCYTES % (AUTO) 19.6 %; MEAN CORPUSCULAR HEMOGLOBIN 32.3 pg (27.0-31.0); MEAN CORPUSCULAR HGB CONC 33.9 g/dL (32.0-36.0); MEAN CORPUSCULAR VOLUME 95.3 fL (81.0-99.0); MEAN PLATELET VOLUME 9.6 fL (7.9-10.8); MONOCYTES # (AUTO) 0.4 10^3/uL (0.0-1.0); MONOCYTES % (AUTO) 6.1 %; NEUTROPHILS # (AUTO) 4.9 10^3/uL (1.5-6.6); PLT - PLATELET COUNT 310 10^3/uL (130-450); RED BLOOD COUNT 4.68 10^6/uL (4.20-5.40); RED CELL DISTRIBUTION WIDTH 12.6 % (12.0-15.0); WHITE BLOOD COUNT 6.9 x10^3/uL (4.8-10.8)
[2023-05-31 15:55] LABS: ALBUMIN 4.3 g/dL (3.2-5.5); ALBUMIN/GLOBULIN RATIO 1.6 (1.0-2.2); BILIRUBIN,TOTAL 0.5 mg/dL (0.2-1.0); CALCIUM 9.7 mg/dL (8.5-10.3); CREATININE 0.8 mg/dL (0.6-1.3); POTASSIUM 4.4 mmol/L (3.5-4.5)
[2023-05-31 15:59] LABS: BILIRUBIN,URINE NEGATIVE (NEGATIVE); CLARITY,URINE CLEAR (CLEAR); GLUCOSE, URINE (UA) NEGATIVE (NEGATIVE); KETONES,URINE (UA) NEGATIVE (NEGATIVE); LEUKOCYTE ESTERASE, URINE NEGATIVE (NEGATIVE); NITRITE,URINE NEGATIVE (NEGATIVE); OCCULT BLOOD,URINE NEGATIVE (NEGATIVE); PROTEIN,URINE NEGATIVE (NEGATIVE); UROBILINOGEN,URINE 0.2 (NORMAL) E.U./dL (NORMAL)
--- NOTE | 2023-05-31 16:14 | ED Physician Documentation ---
PD HPI ABD PAIN - Stated complaint Stated Complaint: SHARP ABD PX - Chief complaint Chief Complaint: Abd Pain - History obtained from History obtained from: Patient - History of Present Illness Pain level max: 9 Pain level now: 4 Quality: Stabbing Associated symptoms: No: Fever, Nausea, Vomiting, Hematemesis, Diarrhea, Constipation, Melena, Hematochezia, Dysuria, Hematuria, Chest pain, Dizzy, Vaginal bleeding, Vaginal dc Similar symptoms before: Has not had sx before - Additional information Additional information: Patient is a 47-year-old female who presents to the emergency department with left-sided abdominal pain. She had an appendectomy about 1 week ago. Since that time she has had left-sided abdominal pain, worse with movement, better with rest. Feels like a stabbing pain. No vomiting. No diarrhea. No constipation. No fevers. Has not contacted her surgeon. No dysuria or hematuria. No vaginal bleeding or discharge. Has not had symptoms previously. Review of Systems Constitutional: denies: Fever, Chills Cardiac: denies: Chest pain / pressure Respiratory: denies: Dyspnea, Cough GI: denies: Nausea, Vomiting, Diarrhea, Hematemesis, Bloody / black stool Skin: denies: Rash Musculoskeletal: denies: Neck pain, Back pain Neurologic: denies: Headache PD PAST MEDICAL HISTORY - Past Medical History Cardiovascular: Hypertension, High cholesterol Respiratory: None Neuro: Migraines Endocrine/Autoimmune: HyPOthyroidism GI: GERD [employer] SPECIALIST: None : None HEENT: None Psych: Depression Musculoskeletal: None Derm: None - Past Surgical History Past Surgical History: Yes Ortho: Shoulder arthroplasty HEENT: Other (thyroidectomy) - Present Medications Home Medications: Ambulatory Orders Medication Instructions Recorded Confirmed Amlodipine Besylate 10 mg PO DAILY PM 07/23/20 08/28/22 Hydrocodone/Acetaminophen 1 - 2 each PO Q6H PRN #14 tablet 07/23/20 08/28/22 [Hydrocodone-Acetamin 5-325 mg] Levothyroxine [Synthroid] 125 mcg PO QDAC 07/23/20 08/28/22 SUMAtriptan succinate [Sumatriptan 50 mg PO DAILY PRN 07/23/20 08/28/22 Succinate] Escitalopram [Lexapro] 1 tab PO DAILY 09/15/20 08/28/22 oxyCODONE [Roxicodone] 5 mg PO Q4H PRN #15 tablet 05/25/23 polyethylene glycoL 3350(BULK) 17 gm PO DAILY #238 gm 05/25/23 [Miralax] polyethylene glycoL 3350(BULK) 17 gm PO DAILY #238 gm 05/25/23 [Miralax] HYDROmorphone [Dilaudid] 2 mg PO Q6H PRN #7 tablet 05/31/23 - Allergies Allergies/Adverse Reactions: Allergies Allergy/AdvReac Type Severity Reaction Status Date / Time No Known Drug Allergies Allergy Verified 05/31/23 15:14 - Social History Does the pt smoke?: No Smoking Status: Former smoker Does the pt drink ETOH?: Yes Does the pt have substance abuse?: No - Immunizations Immunizations are current?: No PD ED PE NORMAL - Vitals Vital signs reviewed: Yes - General General: Alert and oriented X 3, No acute distress - HEENT HEENT: Moist mucous membranes - Neck Neck: Supple, no meningeal sign - Cardiac Cardiac: RRR - Respiratory Respiratory: No respiratory distress, Clear bilaterally - Abdomen Abdomen: Soft, Other (incisions are clean, dry and intact. TTP LLQ without peritoneal signs) - Derm Derm: Warm and dry - Extremities Extremities: No edema, No calf tenderness / cord - Neuro Neuro: Alert and oriented X 3 - Psych Psych: Normal mood, Normal affect Results - Vitals Vitals: Vital Signs - 24 hr 05/31/23 05/31/23 05/31/23 15:15 18:46 19:29 Temperature 37.4 C 37 C Heart Rate 88 78 77 Respiratory 16 15 18 Rate Blood Pressure 140/90 H 158/87 H 149/94 H O2 Saturation 96 99 100 Oxygen O2 Source Room air - Labs Labs: Laboratory Tests 05/31/23 05/31/23 05/31/23 15:39 15:39 15:54 WBC 6.9 RBC 4.68 Hgb 15.1 Hct 44.6 MCV 95.3 MCH 32.3 H MCHC 33.9 RDW 12.6 Plt Count 310 MPV 9.6 Neut # (Auto) 4.9 Lymph # (Auto) 1.4 L Chase # (Auto) 0.4 Eos # (Auto) 0.2 Baso # (Auto) 0.1 Absolute Nucleated RBC 0.00 Nucleated RBC % 0.0 Sodium 134 L Potassium 4.4 Chloride 102 Carbon Dioxide 27 Anion Gap 5.0 L BUN 13 Creatinine 0.8 Estimated GFR (MDRD) 76 L Glucose 103 Calcium 9.7 Total Bilirubin 0.5 AST 13 ALT 11 Alkaline Phosphatase 75 Total Protein 7.0 Albumin 4.3 Globulin 2.7 Albumin/Globulin Ratio 1.6 Lipase 6 L Urine Color YELLOW Urine Clarity CLEAR Urine pH 6.0 Ur Specific [place] 1.010 Urine Protein NEGATIVE Urine Glucose (UA) NEGATIVE Urine Ketones NEGATIVE Urine Occult Blood NEGATIVE Urine Nitrite NEGATIVE Urine Bilirubin NEGATIVE Urine Urobilinogen 0.2 (NORMAL) Ur Leukocyte Esterase NEGATIVE Ur Microscopic Review NOT INDICATED Urine Culture Comments NOT INDICATED - Rads (name of study) CT abd pelvis Relevant Findings:: Final report received PD Medical Decision Making - ED course Complexity details: reviewed results, re-evaluated patient, considered differential, d/w patient ED course: Patient with left sided abdominal pain, the pain is nearly pinpoint and to the left of the umbilicus. She stated the pain is really only present with movement. CT scan does not show any postoperative complications. She does have a left- sided ovarian cyst, she is not having pelvic pain. Pain is not consistent with ovarian torsion. She will follow up as an outpatient for an ultrasound.She declines pain medication here. We will prescribe pain medication for home. Will have her follow up with her surgeon as scheduled. She will return if she worsens or fails to improve. No significant laboratory abnormalities. Patient counseled regarding signs and symptoms for which I believe and urgent re- evaluation would be necessary. Patient with good understanding of and agreement to plan and is comfortable going home at this timeThis document was made in part using voice recognition software. While efforts are made to proofread this document, sound alike and grammatical errors may occur. Departure - Departure Disposition: 01 Home, Self Care Clinical Impression: Postoperative abdominal pain Condition: Good Instructions: ED Abdominal Pain Female Non-Specific Abdominal Pain Follow-Up: Kelsie Harris MD [Provider Admit Priv/Credential] - Within 3 Days Prescriptions: HYDROmorphone [Dilaudid] 2 mg PO Q6H PRN #7 tablet PRN Reason: Abdominal Pain Comments: Please follow up with your doctor for further care. Call the surgical office tomorrow for an appointment. Your CT scan does not show any acute abnormalities today, but you do have a large ovarian cyst, this should be followed up with a pelvic ultrasound, this can be ordered by your doctor. Your prescriptions were sent to the [facility] pharmacy. I am prescribing a short course of narcotic pain medication for you. These are potentially dangerous and addictive medications that should be used carefully. These medications may constipate you. Take an prwm-ahr-vmrljal stool softener (docusate) twice daily with plenty of water while taking these medications. If you go 24 hours without a bowel movement, take aspu-ncm-[id number] miralax, per package instructions. Do not drink or drive while taking these medications. If you received narcotic or sedating medications while in the emergency department, do not drive for 24 hours. Store this medication in a safe, secure place and out of reach of children. It is a violation of federal law to give or sell this medication to another person or to use in a manner other than prescribed. The ED will not refill narcotic prescriptions, including prescriptions lost or stolen. To dispose of unwanted medications: 1. [facility] at [address] in [place] has a medication drop box. They accept prescription medications (in pill form) Wednesday through Wednesday 9:00 a.m. to 5:00 p.m. 2. The [facility] [employer] accepts prescription medications (in pill form only) for disposal year round. Call for more information. 3. Contact the [facility] for the next [facility] sponsored prescription drug collection event. , [phone], or [phone]; FINDINGS: Image quality: Excellent. Lung bases and heart: Left basilar atelectasis. Small hiatal hernia. Liver: No solid mass. Normal size. Mild hepatic steatosis. Gallbladder and biliary tree: There is a calcified gallstone. No gallbladder wall thickening. No biliary dilation. Spleen: No splenomegaly. Pancreas: No pancreatic ductal dilation. Adrenals: No adrenal nodule. Kidneys and ureters: No hydronephrosis. No renal cystic lesion which requires follow up. No solid mass. Bowel and peritoneum: No bowel distension. Appendix is absent consistent with recent appendectomy. No intraperitoneal collections to suggest abscess. No free fluid or free air. Lymph nodes: No central or retroperitoneal adenopathy. Vessels: No infrarenal aortic aneurysm. PELVIS Reproductive organs: Bilateral ovarian cysts, measuring 4.7 cm on the left and 2.1 cm on the right. There is an IUD in uterus. Bladder: No abnormal wall thickening, accounting for underdistension. Pelvic lymph nodes: No pelvic adenopathy by size criteria. Bones: No aggressive osseous abnormality. Other: Small periumbilical fat-containing ventral hernia. IMPRESSION: 1. Appendectomy. No postoperative abscess. 2. Bilateral ovarian cysts, measuring 4.7 cm on the left and 2.1 cm the right. Recommend pelvic ultrasound follow-up. 3. Cholelithiasis. 4. No hiatal hernia. 5. Left basilar atelectasis. Forms: PCP List Discharge Date/Time: 05/31/23 20:36
[2023-05-31] MEDS ORDERED: iohexoL-300 100 ML VIAL IVP ONE (17:49)
--- NOTE | 2023-05-31 18:54 | CT Report ---
PROCEDURE: ABDOMEN/PELVIS W INDICATIONS: L sided abd pain, s/p appy x 1 week CONTRAST: 100ml omni 300 TECHNIQUE: After the administration of IV contrast, 5 mm thick sections acquired from the diaphragms to the symp hysis. 5 mm thick coronal and sagittal reformats were acquired. For radiation dose reduction, the f ollowing was used: automated exposure control, adjustment of mA and/or kV according to patient size. COMPARISON: CT of abdomen and pelvis, 06/25/2023 FINDINGS: Image quality: Excellent. Lung bases and heart: Left basilar atelectasis. Small hiatal hernia. Liver: No solid mass. Normal size. Mild hepatic steatosis. Gallbladder and biliary tree: There is a calcified gallstone. No gallbladder wall thickening. No bili roseanne dilation. Spleen: No splenomegaly. Pancreas: No pancreatic ductal dilation. Adrenals: No adrenal nodule. Kidneys and ureters: No hydronephrosis. No renal cystic lesion which requires follow up. No solid mas s. Bowel and peritoneum: No bowel distension. Appendix is absent consistent with recent appendectomy. No intraperitoneal collections to suggest abscess. No free fluid or free air. Lymph nodes: No central or retroperitoneal adenopathy. Vessels: No infrarenal aortic aneurysm. PELVIS Reproductive organs: Bilateral ovarian cysts, measuring 4.7 cm on the left and 2.1 cm on the right. T here is an IUD in uterus. Bladder: No abnormal wall thickening, accounting for underdistension. Pelvic lymph nodes: No pelvic adenopathy by size criteria. Bones: No aggressive osseous abnormality. Other: Small periumbilical fat-containing ventral hernia. IMPRESSION: 1. Appendectomy. No postoperative abscess. 2. Bilateral ovarian cysts, measuring 4.7 cm on the left and 2.1 cm the right. Recommend pelvic ultra sound follow-up. 3. Cholelithiasis. 4. No hiatal hernia. 5. Left basilar atelectasis. Reviewed by: Ricki Cronin MD on 05/31/2023 6:52 PM PDT Approved by: Ricki Cronin MD on 05/31/2023 6:52 PM PDT Station ID: [id number]
[2023-05-31 19:38] VITALS: BP 149/94; O2SAT 100
== END 2023-05-31 20:36 | disposition home or self-care (01) ==
LOC: ED 15:12
DX: G89.18 Other acute postprocedural pain (principal); R10.33 Periumbilical pain; I10 Essential (primary) hypertension; E78.00 Pure hypercholesterolemia, unspecified; E03.9 Hypothyroidism, unspecified; Z79.899 Other long term (current) drug therapy; Z87.891 Personal history of nicotine dependence
CPT/HCPCS: 36415; 74177; 80053; 81003; 83690; 85025; 99283; 99284; Q9967; 81001; 87086

== ENCOUNTER 2023-10-22 16:42 | Outpatient (CLI) | payer OTHER | END 2023-10-22 16:43 | disposition home or self-care (01) | LOC: LAB.N 16:42 | PROVIDERS: ATTEND Obstetrics & Gynecology | DX: N83.292 Other ovarian cyst, left side (principal) | CPT/HCPCS: 36415; 82378; 86301; 86304; 86305 ==

== ENCOUNTER 2023-11-05 16:50 | Outpatient (CLI) | payer OTHER ==
--- NOTE | 2023-11-06 19:01 | Ultrasound Report ---
PROCEDURE: Pelvic Complete INDICATIONS: OVARIAN CYST TECHNIQUE: Real-time transabdominal scanning was performed of the pelvic organs, with image documentation. COMPARISON: CT abdomen and pelvis on May 31, 2023 FINDINGS: Uterus: Uterus is anteverted and normal in size at 9.8 x 3.9 x 5.7 cm. The myometrium is heterogene ous. The endometrium measures 5.7 mm in combined thickness. IUD is in appropriate position. Cervix is within normal limits. Ovaries: The right ovary measures 5.4 x 2.3 x 3.8 cm, with a calculated ovarian volume of 25.2 cc. Right ovarian cyst measuring 2.1 x 2.5 x 2.7 cm and 2.2 x 1.7 x 2.3 cm The left ovary measures 4.8 x 2.5 x 3.5 cm, with a calculated ovarian volume of 21.4 cc. Left ovarian cyst measuring 3.4 x 2.3 x 3 .1 cm. These cysts are simple in nature with no septations or nodularity. The ovaries have an otherwi se normal sonographic appearance. Less than 12 follicles can be seen in each ovary. No adnexal mass es are seen. Other: No free pelvic fluid. IMPRESSION: 1.Endometrial thickness measures 5.7 mm. 2.IUD is in appropriate position. 3.Bilateral simple ovarian cysts measuring up to 2.1 x 2.5 x 2.7 cm on the right and 3.4 x 2.3 x 3.1 cm on the left. - Per SRU guidelines if patient is of reproductive age, no follow-up needed. If patient is postmenopa usal, recommend annual follow-up. Reviewed by: Caroline Balderas MD on 11/06/2023 7:00 PM PST Approved by: Caroline Balderas MD on 11/06/2023 7:00 PM PST Station ID: [id number]
== END 2023-11-05 16:51 | disposition home or self-care (01) ==
LOC: DI 16:50
PROVIDERS: ATTEND Obstetrics & Gynecology
DX: N83.292 Other ovarian cyst, left side (principal); N83.291 Other ovarian cyst, right side; Z97.5 Presence of (intrauterine) contraceptive device

== ENCOUNTER 2024-01-04 09:55 | Outpatient (CLI) | payer OTHER ==
--- NOTE | 2024-01-05 09:08 | Ultrasound Report ---
LIMITED ULTRASOUND OF RIGHT BREAST: 01/04/2024 CLINICAL: Patient returns today to evaluate a focal asymmetry in the right breast. Comparison is made to exams dated: 01/04/2024 mammogram - [facility], 12/17/2023 mamm ogram, 05/22/2022 mammogram, and 07/25/2014 [place] [facility] [place] Ultrasound of the right breast 9 o'clock region was performed. Shah scale images of the real-time ex amination were reviewed. No significant abnormalities were seen sonographically in the right breast. Specifically, no finding to correspond to the patient's probably post surgical scarring seen on screening mammogram. IMPRESSION: PROBABLY BENIGN No sonographic correlate to the screening mammogram finding which is likely post surgical scarring gi roger recent mammoplasty. A follow-up mammogram in 6 months is recommended to demonstrate stability. F indings and recommendations were conveyed to the patient at time of exam. This exam was interpreted at Station ID: [id number]. Electronically Signed By: Linda velasquez/:01/04/2024 11:36:12 Ultrasound BI-RADS: 3 Probably benign BI-RADS CATEGORY: (3) - 3 Mammogram [id number] 6 month follow-up LATERALITY: (R)
--- NOTE | 2024-01-05 09:08 | Mammography Report ---
UNILATERAL RIGHT DIGITAL DIAGNOSTIC MAMMOGRAM 3D/2D WITH MEDIOLATERAL OBLIQUE SPOT COMPRESSION: 024 CLINICAL: Patient returns today to evaluate an architectural distortion in the right breast. Comparison is made to exams dated: 12/17/2023 mammogram, 05/22/2022 mammogram, and 07/25/2014 mammogra - [facility]. There are scattered areas of fibroglandular density in the right breast (category b / 25%-50% glandul ar tissue). There is a new irregular architectural distortion in the right breast at 9 o'clock posterior depth. This is seen in additional views. This correlates with skin marker indicating scar of recent mammopl asty surgery. No other significant masses or calcifications are seen in the breast. IMPRESSION: INCOMPLETE: NEEDS ADDITIONAL IMAGING EVALUATION The new irregular architectural distortion in the right breast is most likely a post-surgical scar. An ultrasound is recommended for verification. This was performed immediately following this exam. Based on the Tyrer Cuzick model (a risk assessment model) the patient's lifetime risk is 8.1% and her 10 year risk is 1.9%. According to the ACR, ACS, and NCCN guidelines, an annual breast MRI exam rema g with mammogram is recommended if the patient's lifetime risk is 20% or greater. This exam was interpreted at Station ID: [id number]. NOTE: For mammograms, a report in lay terms will be sent to the patient. Approximately 15% of breast malignancies will not be visualized mammographically. In the management of a palpable breast mass, a negative mammogram must not discourage biopsy of a clinically suspicious lesion. Electronically Signed By: Linda velasquez/:01/04/2024 11:22:16 ACR BI-RADS Category 0: Incomplete 3340F PARENCHYMAL PATTERN: (A) - The breast(s) demonstrate(s) scattered fibroglandular densities. BI-RADS CATEGORY: (0) - 0 Ultrasound [id number] Immediate follow-up LATERALITY: (B)
== END 2024-01-04 09:56 | disposition home or self-care (01) ==
LOC: DI 09:55
PROVIDERS: ATTEND Family Medicine
DX: R92.8 Other abnormal and inconclusive findings on diagnostic imaging of breast (principal); R92.321 Mammographic fibroglandular density, right breast